=== PATIENT | female | born 1985 | race Two or more races ===

== ENCOUNTER 2019-02-06 00:58 | Emergency (ER) | payer OTHER ==
[~2019-02-06] VITALS: Ht 152.4 cm; Wt 61.2 kg
--- NOTE | 2019-02-06 02:00 | NUR ---
BIB SELF COMPLAINTS OF N/V. NO REPSIRATORY DISTRESS NOTED. V/S STABLE.
[2019-02-06] MEDS ORDERED: ONDANSETRON HCL/PF 4 MG/2 ML VIAL IV ONE (02:30)
[2019-02-06] MEDS ORDERED: ONDANSETRON HCL/PF 4 MG/2 ML VIAL ONE (02:42)
--- NOTE | 2019-02-06 02:45 | NUR ---
LAC G18 INSERTED.
[2019-02-06 03:11] VITALS: BP 149/95
[2019-02-06] MEDS ORDERED: IV NS 0.9% 1,000 ML BAG IV ONE (03:30)
== END 2019-02-06 03:15 | disposition home or self-care (01) ==
LOC: ER 01:02
DX: F41.9 Anxiety disorder, unspecified (principal)
CPT/HCPCS: 36415; 80305; 80307; 82962; 96374; 99283; J2405; G0480